=== PATIENT | female | born 1945 | race Two or more races ===

== ENCOUNTER 2024-12-17 17:09 | Emergency (ER) | payer OTHER, SELFPAY ==
[2024-12-17] VITALS (7 sets, daily range): BP systolic 178–243; BP diastolic 60–159
[2024-12-17 18:17] LABS: % Basophils 0.2 % (0-2); % Eosinophils 6.8 % (0-6); % Immature Granulocytes 0.2 % (0-0.5); % Lymphocytes 25.7 % (20.5-51.1); % Monocytes 5.9 % (1.7-9.3); % Neutrophils 61.2 % (42.2-75.2); Absolute Eosinophils 0.8 10^3/uL (0-0.7); Absolute Lymphocytes 2.9 10^3/uL (1.2-3.4); Absolute Monocytes 0.7 10^3/uL (0.1-0.6); Hematocrit 42.2 % (37.0-47.0); Hemoglobin 14.3 g/dL (12.0-16.0); Mean Corp Hgb Conc. 33.9 g/dL (33.0-37.0); Mean Corpuscular Hgb 30.4 pg (27.0-31.0); Mean Corpuscular Volume 89.6 fL (81.0-99.0); Mean Platelet Volume 10.6 fL (7.4-10.4); Nucleated Red Blood Cells % 0 %; Platelet Count 253 10^3/uL (130-400); Red Blood Cell Count 4.71 10^6/uL (4.20-5.40); Red Cell Dist. Width 12.6 % (11.5-14.5); White Blood Cell Count 11.4 10^3/uL (4.8-10.8)
[2024-12-17 18:28] LABS: ALT (SGPT) 116 U/L (0-35); AST (SGOT) 267 U/L (14-36); Albumin 4.8 g/dl (3.5-5.0); Alkaline Phosphatase 119 U/L (38-126); Blood Urea Nitrogen 16 mg/dl (7-17); Calcium 9.9 mg/dl (8.4-10.2); Carbon Dioxide 25 mmol/L (22-30); Chloride 104 mmol/L (98-107); Glucose 161 mg/dl (70-99); Potassium 4.2 mmol/L (3.5-5.1); Sodium 142 mmol/L (135-145); Total Bilirubin 1.5 mg/dl (0.2-1.3); Total Protein 7.8 g/dl (6.3-8.2); eGFR > 60.00
--- NOTE | 2024-12-17 18:56 | ED.GENMED ---
History of Present Illness
General
Chief Complaint: Abdominal Symptoms
Source: patient and family (Daughter over the phone)
Exam Limitations: none
Time Seen by Provider: 12/17/24 18:36
Nursing documentation reviewed up to this point in time: agreed with
History of Present Illness
History of Present Illness:
The patient is a 79-year-old female with a past medical history of uncontrolled hypertension who reports upper abdominal pain, nausea, vomiting and diarrhea that started at 12:30 PM today. Patient reports had a similar episode of nausea, vomiting,
diarrhea and abdominal pain this past August and was hospitalized overnight in [facility]. Patient reports that nothing specific was found at the time and symptoms went away. Patient denies blood in her stool. Patient is continuously
moaning and is a poor historian. She denies fever. She denies chest pain. She denies sick contacts. She denies recent antibiotic use. Patient is not sure of her allergies and believes she is allergic to IV contrast and penicillin
Past History
Past History
ED Past Medical History: HTN
ED Past Surgical History:
Social History
Tobacco: Non-smoker
Alcohol: None
Drug: None
Personal:
Living: with family
Employment: Other
Family History
Family History: Other
Review of Systems
Review of Systems
Allergies reviewed?: Yes
All Other Systems: ROS reviewed and negative except as documented in HPI and ROS
Constitutional: Reports no symptoms
EENT: Reports no symptoms
Respiratory: Reports no symptoms
Cardiac: Reports no symptoms
ABD/GI: Reports abdominal pain, nausea, vomiting and diarrhea
: Reports no symptoms
Musculoskeletal: Reports no symptoms
Skin: Reports no symptoms
Neurological: Reports no symptoms
Endocrine: Reports no symptoms
Hematologic/Lymphatic: Reports no symptoms
Psychiatric: Reports no symptoms
Phy Exam
Physical Exam
Physical Exam:
Physical Exam
General: Patient appears anxious, is moaning in discomfort
Neck: supple. no meningeal signs. normal psoterior pharynx
Heart: s1/s2 regular rate and rhythm, no murmur. equal radial pulses.
Lungs: no acute respiratory distress. clear bilaterally
Abdomen: normal bowel sounds. Epigastric tenderness. No rebound or guarding. No pulsatile mass
Neuro: alert and oriented. no focal neurological deficits
Skin: no rash
Psychiatric: well kept. interactive and cooperative
Extremities: no edema. no calf tenderness. negative homans. good distal pulses
Sepsis
Sepsis Screening
Sepsis Assessment: Sepsis Ruled Out
Sepsis Screen
Sepsis Screen: Sepsis Ruled Out
Date: 12/18/24
Time: 02:02
Course
Orders/Labs/Results
Orders:
Orders
12/17/24 17:56
Complete Blood Count/With Diff Urgent
Comprehensive Metabolic Panel Urgent
Lipase Urgent
Comment: ADD ON
12/17/24 18:56
0.9% Sodium Chloride 1000 ml [Nss] 1,000 ml IV BOLUS
HYDROmorphone [Dilaudid] 0.25 mg IV NOW STA
Ondansetron Injectable [Zofran] 4 mg IV NOW STA
12/17/24 18:57
Add On- LAB Urgent
Tests Added?: lipase
12/17/24 19:04
Troponin I Urgent
12/17/24 19:05
Electrocardiogram (*1) Urgent
Reason for Study: Abdominal Pain
CT Abd/pel Without Iv Or Oral Urgent
Comment:
Reason For Exam: epig pain, n/v
EKG- Treatment ONCE
12/17/24 19:38
HYDROmorphone [Dilaudid] 0.5 mg IV NOW STA
12/17/24 20:09
Lactic Acid Urgent
12/17/24 20:30
CR Chest - 2 Views Urgent
Comment:
Reason For Exam: abnormal CT
US Abdomen Complete/Upper Urgent
Comment:
Reason For Exam: epig pain
12/17/24 20:33
Troponin I Urgent
12/18/24 00:17
Pantoprazole [Protonix] 40 mg PO NOW STA
Abnormal Lab Results
12/17/24
17:56
WBC 11.4 H 10^3/uL
(4.8-10.8)
MPV 10.6 H fL
(7.4-10.4)
Absolute Neuts (auto) 7.0 H 10^3/uL
(1.4-6.5)
Absolute Monos (auto) 0.7 H 10^3/uL
(0.1-0.6)
Absolute Eos (auto) 0.8 H 10^3/uL
(0-0.7)
Eosinophils % 6.8 H %
(0-6)
Glucose 161 H mg/dl
(70-99)
Total Bilirubin 1.5 H mg/dl
(0.2-1.3)
AST 267 H U/L
(14-36)
ALT 116 H U/L
(0-35)
12/17/24 17:56
12/17/24 17:56
Vital Signs
Initial and Last Documented VS:
Initial Vital Signs
Pulse Resp BP Pulse Ox
96 22 243/113 98
12/17/24 17:38 12/17/24 17:38 12/17/24 17:38 12/17/24 17:38
Last Documented Vital Signs
Temp Pulse Resp BP Pulse Ox
98.2 F 92 22 214/96 94
12/17/24 19:15 12/18/24 00:29 12/18/24 00:29 12/18/24 00:31 12/18/24 00:15
MDM/Problems Addressed
Differential Diagnosis Includes:
Acute gastritis, acute cholecystitis, acute pancreatitis, acute small bowel obstruction
MDM/Problems Addressed:
Patient presents with acute nausea vomiting diarrhea and abdominal pain
Chronic conditions affecting care: Previous abdomnial surgery
Acute Exacerbation and/or Progression of Chronic Illness:
Patient may have acute bowel obstruction due to chronic scar tissue from previous
Patient also is acutely hypertensive due to chronically poorly controlled hypertension and pain
Acute Exacerbation and/or Progression of Chronic Illness: HTN and Previous abdomnial surgery
*Radiology
Radiology exam reviewed: preliminary read by ED provider (Chest x-ray reviewed by me. Cardiomegaly, mild vascular congestion) and radiology read reviewed
*Pulse Oximetry
Patient hypoxic: no
*EKG
Interpreted by ED Provider?: Yes
Interpretation: abnormal
Comparison EKG: no comparison EKG present
Rate: normal
Rhythm: sinus
Loris: left axis deviation
Interval: normal interval
QRS Pattern: normal QRS
Ischemia: non-specific ST changes
*Senior Producer Interpretation
Rate: normal
Interpretation: normal
Rhythm: sinus
*Critical Care Note
Total Time (30-74mins, 75-104mins- exclusive of procedures): Not Applicable
Data Reviewed
Source: patient and family
Patient Management
Social determinants of health affecting care: Living situation and Strong social support
Update Note
Update Note:
Patient's pain greatly improved over several hours in the emergency department. Patient's CAT scan did show cholelithiasis so we proceeded with an ultrasound which showed cholelithiasis but no sign of gallbladder wall thickening or pericholecystic
fluid. I spoke extensively to the patient as well as her daughter, who is at the patient's bedside, about gallstones and the possibility that the gallstones could be causing her pain. I offered admission to the hospital but patient tell me that
her pain was gone and she really would like to go home. I do feel this is reasonable given that the patient is pain-free, has no further nausea and vomiting, and is able to tolerate fluids. It is also possible that the patient's pain is due to
GERD, so I will give her Protonix. Patient encouraged strongly to return with any recurrence of pain or vomiting. Patient understands that if her pain was due to her gallstones, that her symptoms could recur and cause a gallbladder infection.
Additionally, I have also left a message with the GI front desk monitor for patient to have a prompt appointment. I do feel that patient would likely benefit from an endoscopy as an outpatient
ED Attending Note
-
Portions of this chart may have been created with voice recognition software.� Occasional wrong word or��sound alike� substitutions may have occurred due to the inherent limitations of voice recognition software.
Discharge Plan
Departure
Patient Disposition: Home (Routine Discharge)
Date of Disposition: 12/18/24
Time of Disposition: 00:15
Patient with high blood pressure during this ER visit?: Yes
Condition: Good
Covid-19: Not Applicable
Discharge Problem:
Abdominal pain, epigastric, Gallstones, Nausea & vomiting
Instructions: [place] Diet, Nausea and Vomiting, Adult (DC), Gallstones - ED discharge instructions, Abdominal Pain, BLOOD PRESSURE
Prescriptions:
New
pantoprazole [Protonix] 40 mg tablet,delayed release (DR/EC)
40 mg PO DAILY Qty: 30 0RF
Referrals:
[facility], [Other]
Luis Viera CRNP [Family Provider] -
Blanche Orosco MD [Active] - (If you do not hear from the youth counselor within 48 hours, please give them a call to make an appointment as soon as possible)
Activity Restrictions/Additional Instructions:
Please return with any recurrence of pain, vomiting or fever.
Please see your doctor soon as possible to discuss your blood pressure
Interventions
Interventions:
*Risk Screen - Suicide Last Done: 12/17/24 18:45
*General Assessment Last Done: 12/17/24 18:45
*Neglect/Abuse Screening Last Done: 12/17/24 18:45
*ED- Fall Risk Assessment Last Done: 12/17/24 18:45
*ED COVID-19 Vaccine History Last Done: 12/17/24 18:45
*Nursing Disposition Last Done: 12/18/24 00:37
[place]-Igajae-Zzrfdagjaz Assessment Last Done: 12/17/24 18:13
Discharge Date and Time
Discharge Date/Time: 12/18/24 00:38
Print Language: VIET[place]ESE
[2024-12-17] MEDS: NSS 1000 IV (19:02)
[2024-12-17] MEDS: ZOFRAN 4 MG IV (19:02)
[2024-12-17] MEDS: DILAUDID 0.25 MG IV (19:03)
[2024-12-17 19:27] LABS: Lipase 111 U/L (23-300)
[2024-12-17 19:36] LABS: Troponin I < 0.012 ng/ml
[2024-12-17] MEDS: DILAUDID 0.5 MG IV (20:09)
[2024-12-17 20:40] LABS: Lactic Acid 1.3 mmol/L (0.7-2.0)
[2024-12-17 21:09] LABS: Troponin I < 0.012 ng/ml
[2024-12-18] MEDS: PROTONIX 40 MG PO (00:27)
[2024-12-18 00:29] VITALS: BP 212/99
[2024-12-18 00:31] VITALS: BP 214/96
== END 2024-12-18 00:38 | disposition home or self-care (01) ==
LOC: EMR 17:09
PROVIDERS: EMERGENCY PHYSICIAN Emergency Medicine; FAMILY PHYSICIAN Nurse Practitioner Family
DX: K80.20 Calculus of gallbladder without cholecystitis without obstruction (principal); R10.13 Epigastric pain; R11.2 Nausea with vomiting, unspecified; I10 Essential (primary) hypertension; K21.9 Gastro-esophageal reflux disease without esophagitis
CPT/HCPCS: 96374; 96375; 96361; 99284; 71046; 74176; 76700; 80053; 83605; 83690; 84484; 85025; 93005

== ENCOUNTER 2025-01-10 06:20 | Day surgery (SDC) | payer OTHER, SELFPAY | END 2025-01-10 11:01 | disposition home or self-care (01) | LOC: GI 06:20 | PROVIDERS: ATTENDING PHYSICIAN Internal Medicine Gastroenterology | DX: Z12.11 Encounter for screening for malignant neoplasm of colon (principal); K57.30 Diverticulosis of large intestine without perforation or abscess without bleeding; K64.8 Other hemorrhoids; R10.13 Epigastric pain; K44.9 Diaphragmatic hernia without obstruction or gangrene; K31.7 Polyp of stomach and duodenum; K31.89 Other diseases of stomach and duodenum; D12.2 Benign neoplasm of ascending colon; K62.1 Rectal polyp | CPT/HCPCS: 45385; 45380; 43239; 88305; 88342 ==